=== PATIENT | female | born 1990 | race Caucasian/White ===

== ENCOUNTER 2023-05-24 21:29 | Emergency (ER) | payer MEDICAID ==
[~2023-05-24] VITALS: Ht 160 cm; Wt 83.9 kg
[2023-05-24 22:12] VITALS: BP 144/62; TEMP 98.6; O2SAT 95
[2023-05-24] MEDS ORDERED: CEPH500C2 PO (22:33)
== END 2023-05-25 00:34 | disposition home or self-care (01) ==
LOC: ER 21:38
DX: L73.9 Follicular disorder, unspecified (principal)